=== PATIENT | male | born 1960 | race Caucasian/White ===

== ENCOUNTER → 2018-03-02 09:50 | Outpatient (CLI) | payer OTHER, SELFPAY ==
--- NOTE | 2018-03-02 09:56 | RAD_ITS ---
STUDY: X-RAY - LUMBAR SPINE REASON FOR EXAM: Male, 57 years old. Lumbar radiculopathy TECHNIQUE: 5 view(s) of the lumbar spine were obtained. COMPARISON: None FINDINGS: Straightening of the normal lumbar lordosis. There is no substantial scoliosis. There is a normal alignment of the vertebrae. There is multilevel endplate spondylosis of the lumbar vertebrae. There is multi-level degenerative disc disease with multi-level disc space narrowing. There are atherosclerotic vascular calcifications. The soft tissue structures are unremarkable. RAD/L/S Spine Min 4 Views IMPRESSION: Degenerative changes of the spine, as detailed above. There is mild straightening of the normal lumbar lordosis. This can suggest back strain. Electronically Signed: Romeo Joseph MD at 17:08 EDT , Service support ,
== END ==
PROVIDERS: Visit Provider Chiropractor
DX: M54.16 Radiculopathy, lumbar region (principal)
CPT/HCPCS: 72110

== ENCOUNTER → 2018-03-17 06:53 | Outpatient (CLI) | payer OTHER, SELFPAY ==
--- NOTE | 2018-03-17 07:01 | RAD_ITS ---
STUDY: X-RAY - ORBITS REASON FOR EXAM: Male, 57 years old. This study is being performed as a clearance examination for exclusion of orbital metal, prior to the performance of an MRI examination. TECHNIQUE: 2 view(s) of the orbits were obtained. COMPARISON: None. FINDINGS: Normal bilateral orbits without a metallic orbital foreign body. Normal visualized facial bones. Normal paranasal sinuses. The soft tissue structures are unremarkable. RAD/Orbits for Foreign Body IMPRESSION: No demonstrated metallic orbital foreign body. The patient is cleared for an MRI examination. Electronically Signed: Elinor Ballesteros MD at 7:20 EDT , Service support ,
--- NOTE | 2018-03-17 07:45 | MRI_ITS ---
STUDY: MRI LUMBAR SPINE WITHOUT CONTRAST REASON FOR EXAM: Male, 57 years old. Low back pain and lumbar radiculopathy. TECHNIQUE: Standardized fat and water weighted pulse sequences were obtained in the sagittal and axial planes. COMPARISON: Radiographs of the lumbar spine dated March 02, 2018. FINDINGS: T12-L1: There is narrowing of this disc. There is irregularity of the endplates probably related to small Schmorl's nodes. Neural foramina are patent. There is no significant central acquired canal stenosis. There is straightening of the normal lumbar lordosis. There is no substantial scoliosis. Normal conus medullaris that terminates at the T12 level. L1-2: There is narrowing of this disc. There is a Schmorl's node of the superior endplate of L2. There is mild annular disk bulge and osteophyte complex. There is mild degenerative arthropathy of the facet joints. Bilateral neuroforamina are narrowed without MR evidence for nerve impingement. There is no significant central canal stenosis. L2-3: There is mild annular disk bulge and osteophyte complex. There is mild degenerative arthropathy of the facet joints. Bilateral neuroforamina are narrowed without MR evidence for nerve impingement. There is no significant central canal stenosis. L3-4: There is a broad central disc protrusion. There is an annular disc bulge and osteophyte complex. There is mild central acquired canal stenosis. There is moderate left-sided facet joint arthropathy. There is bilateral neural foraminal narrowing with potential impingement of the left L3 nerve root at the neural foramen. L4-5: There is a broad central disc protrusion. There is moderate degenerative arthropathy of facet joints. There is mild central acquired canal stenosis. Neural foramina are bilaterally narrowed with potential impingement of bilateral L4 nerve roots at the neural foramina. L5-S1: There is an annular disc bulge and osteophyte complex. There is moderate degenerative arthropathy of facet joints. There appears be focal right central and foraminal disc protrusion. This may cause impingement of the right S1 nerve root at the lateral recess. Neural foramina are bilaterally narrowed with potential impingement of the right L5 nerve root at the neural foramen there is mild central acquired canal stenosis. Normal visualized sacral ala. Normal visualized paraspinous soft tissue structures. MRI/Spine Lumbar (Routine) IMPRESSION: 1. Moderately severe multilevel degenerative disc disease and degenerative arthropathy of the lumbar spine with acquired canal stenosis, neural foraminal narrowing and potential nerve impingement, as described. 2. 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 Electronically Signed: Alma Fernandez MD at 11:30 EDT , Service support ,
== END ==
PROVIDERS: Family Provider Family Medicine; PCP Family Medicine; Visit Provider Chiropractor
DX: M51.17 Intervertebral disc disorders with radiculopathy, lumbosacral region (principal); M48.07 Spinal stenosis, lumbosacral region
CPT/HCPCS: 70030; 72148